=== PATIENT | female | born 1985 | race Hispanic/Latino ===

== ENCOUNTER 2016-07-05 00:53 | Emergency (ER) | payer OTHER ==
[~2016-07-05] VITALS: Ht 152.4 cm; Wt 55.8 kg
--- NOTE | 2016-07-05 01:17 | ED GI/GU/ABDOMINAL COMPLAINT ---
See Addendum History of Present Illness General Chief Complaint: Nausea, Vomiting, Diarrhea Stated Complaint: "I THINK I HAVE FOOR POISIONING" + V Source: patient, old records Exam Limitations: no limitations Vital Signs & Intake/Output Vital Signs & Intake/Output Vital Signs Date Time Temp Pulse Resp B/P Pulse O2 O2 Flow FiO2 Ox Delivery Rate 07/05 0126 Room Air 07/05 0106 96.8 114 16 123/76 97 Room Air Allergies Coded Allergies: NO KNOWN ALLERGIES (09/01/11) Reconcile Medications No Known Home Medications Triage Note: PT TO TRIAGE STATES "I THINK I HAVE FOOD POISONING." PT REPORTS HAVING SUSHI APPROX 2100 AND N/V/D SINCE APPROX 0000. Triage Nurses Notes Reviewed? yes ? n Is pt currently ? No HPI: Patient presents for evaluation of possible food poisoning. Patient states that the suspicious meal was eaten Monday and consisted of sushi, shrimp and ribs. Yesterday she began having vomiting and multiple episodes of nonbloody watery diarrhea with cramping abdominal pain. In addition she states she's felt a bit headachy and although she hasn't had about right fever has felt like she might be developing one. She denies known ill contacts or recent travel. She has had great difficulty in tolerating even clear liquids. Nothing seems to make her feel better. Symptoms are described as moderate to severe in intensity , more or less constant but fluctuates in intensity. Past History Travel History Traveled to [place] past 21 day No Medical History Any Pertinent Medical History? see below for history Respiratory: asthma Surgical History Surgical History: non-contributory Psychosocial History What is your primary language French Tobacco Use: Never used ETOH Use: occasional use Family History Hx Contributory? No Review of Systems Review of Systems Constitutional: Reports: no symptoms. EENTM: Reports: no symptoms. Respiratory: Reports: no symptoms. Cardiovascular: Reports: no symptoms. GI: Reports: see HPI. Genitourinary: Reports: no symptoms. Musculoskeletal: Reports: no symptoms. Skin: Reports: no symptoms. Neurological/Psychological: Reports: headache. Hematologic/Endocrine: Reports: no symptoms. Immunologic/Allergic: Reports: no symptoms. All Other Systems: Reviewed and Negative Physical Exam Physical Exam Gastrointestinal: SEE BELOW Comments: Gen.: Well-nourished, well-developed, no acute respiratory distress. Tired but nontoxic appearing. Head: Normocephalic, atraumatic. Eyes: Normal inspection bilaterally Ears: Normal inspection bilaterally Nose: Normal inspection Throat/mouth : Tacky mucosa Neck: Supple, full range of motion, no goiter Heart: Regular rate and rhythm, no murmurs rubs or gallops Lungs: Clear to auscultation bilaterally with normal air entry Chest: Nontender Back: Normal range of motion Abdomen: Soft, nontender, nondistended, normal bowel sounds Extremities: Normal range of motion grossly, equal radial pulses, no cyanosis clubbing or edema Neurologic: Cranial nerves grossly intact, speech is clear Skin: warm and dry Psychiatric: Calm, cooperative, no apparent delusions or hallucinations Core Measures ACS in differential dx? No Severe Sepsis Present: No Septic Shock Present: No Progress Differential Diagnosis: viral syndrome Plan of Care: Current Medications Sig/Adalberto Start time Last Medication Dose Stop Time Status Admin Ondansetron HCl 4 MG ONCE ONE 07/05 129 UNVr (Zofran) 07/05 130 Sodium Chloride 1,000 ML BOLUS ONE 07/05 129 UNVr (Normal Saline 0.9%) 07/05 228 Initial ED EKG: none Comments: 07/05/2016 2:34:04 AM patient is feeling better with only mild and tolerable nausea right now. She feels well enough to go home. Departure Departure Disposition: HOME OR SELF CARE Condition: Stable Clinical Impression Primary Impression: Viral gastroenteritis Referrals: PATIENT HAS NO PRIMARY CARE DR (PCP/Family) Additional Instructions: Zofran as needed for nausea or vomiting, Levsin as needed for cramping abdominal pain. Follow-up with your primary care doctor if not improved in 72 hours. Return if any concerns or sudden worsening. Thank you for choosing the [facility] for your care. It was a pleasure to serve you today. Niko Ramirez M.D. [facility] Departure Forms: Customer Survey General Discharge Information Prescriptions: Current Visit Scripts No Known Home Medications
[2016-07-05] MEDS ORDERED: LEVSIN0.125 M1 PO (02:36)
[2016-07-05] MEDS ORDERED: ZOFRAN ODT4 M1 SL (02:36)
[2016-07-05 02:42] VITALS: BP 120/72
== END 2016-07-05 02:42 ==
LOC: ERH 00:53
DX: A08.4 Viral intestinal infection, unspecified (principal)
CPT/HCPCS: 96374; J2405